=== PATIENT | female | born 1985 | race Two or more races ===

== ENCOUNTER 2016-07-14 08:52 | Emergency (ER) | payer OTHER ==
[2016-07-14] MEDS ORDERED: LACTATED RINGERS 1,000 ML ONE (09:13)
[2016-07-14] MEDS ORDERED: DIPHENHYDRAMINE HCL 50 MG/1 ML VIAL ONE (09:32)
[2016-07-14] MEDS ORDERED: METOCLOPRAMIDE HCL 5 MG/ML 2ML VIAL ONE (09:32)
[2016-07-14 09:55] LABS: ABSOLUTE NEUTROPHIL COUNT 10.5 K/mm3 (1.8-7.7); BASO # 0.1 K/mm3 (0.0-0.2); BASO % 0.5 % (0.2-1.0); EOS % 0.2 % (0.9-2.9); HEMATOCRIT 41.1 % (37.0-47.0); HEMOGLOBIN 13.5 gm/l (12.0-16.0); IMM NEUT # 0.1 K/mm3 (0-0.2); IMM NEUT% 0.4 % (0-1); LYMPH # 1.7 (1.0-4.8); LYMPH % 13.1 % (15-45); MEAN CORPUSCULAR HEMOGLOBIN 28.2 pg (27.0-31.0); MEAN CORPUSCULAR HGB CONC 32.8 g/dl (33.0-37.0); MEAN PLATELET VOLUME 9.4 fl (7.4-10.4); MONO # 0.8 (0.0-0.8); NEUT % 79.8 % (43-75); PLATELET COUNT 419 K/mm3 (130-400)
[2016-07-14] MEDS ORDERED: KETOROLAC TROMETHAMINE 15 MG/ML VIAL ONE (10:05)
[2016-07-14 10:20] LABS: ALB/GLOB RATIO 1.2 (>1.0); CALCIUM 9.3 mg/dL (8.6-10.3)
[2016-07-14 11:10] LABS: SPECIFIC GRAVITY 1.015 (1.001-1.030); URINE BILIRUBIN NEGATIVE (NEGATIVE); URINE BLOOD 2+ (NEGATIVE); URINE GLUCOSE (UA) NEGATIVE (NEGATIVE); URINE LEUKOCYTE ESTERASE NEGATIVE (NEGATIVE); URINE NITRITE NEGATIVE (NEGATIVE); URINE PROTEIN NEGATIVE (NEGATIVE); URINE UROBILINOGEN NORMAL (0-1 mg/dl)
[2016-07-14 11:12] LABS: HCG,QUALITATIVE URINE NEGATIVE
[2016-07-14] MEDS ORDERED: ACETAMINOPHEN 500 MG TABLET ONE (11:13)
[2016-07-14 11:16] LABS: URINE APPEARANCE CLEAR; URINE COLOR YELLOW
[2016-07-14 11:28] LABS: URINE WBC 0-1 /hpf
[2016-07-14 11:29] LABS: URINE BACTERIA 1+
== END 2016-07-14 11:46 | disposition home or self-care (01) ==
LOC: ED 08:52
DX: J06.9 Acute upper respiratory infection, unspecified (principal); G43.909 Migraine, unspecified, not intractable, without status migrainosus
CPT/HCPCS: 81025; 85025; 80053; 81001; 96375 ×2; 99283 ×2; 96374; 96361 ×2; J1200; J2765; J1885; A9270; J7120